=== PATIENT | male | born 1980 | race African-American/Black ===

== ENCOUNTER → 2017-09-18 | Outpatient (CLI) | payer BC | LOC: M WHC 14:15 | DX: N43.3 Hydrocele, unspecified (principal); I86.1 Scrotal varices; N50.89 Other specified disorders of the male genital organs | CPT/HCPCS: 80048 ==

== ENCOUNTER → 2017-09-18 | Outpatient (REF) | payer BC ==
[2017-09-18 16:30] LABS: ANION GAP 6 MEQ/L (8-16); BLOOD UREA NITROGEN 16 MG/DL (7-18); CARBON DIOXIDE LEVEL 28 MEQ/L (21-32); CHLORIDE LEVEL 104 MEQ/L (98-107); CREATININE FOR GFR 1.23 MG/DL (0.70-1.30); GLOMERULAR FILTRATION RATE > 60.0 (>60); GLUCOSE, FASTING 76 MG/DL (70-100); POTASSIUM SERUM 3.8 MEQ/L (3.5-5.1); SODIUM LEVEL 138 MEQ/L (136-145)
== END ==
LOC: M SFHCPLAZ 13:41
DX: I10 Essential (primary) hypertension (principal)

== ENCOUNTER 2018-12-21 22:52 | Emergency (ER) | payer BC, SELFPAY ==
[~2018-12-21] VITALS: Ht 182.9 cm; Wt 75.0 kg
[2018-12-21 22:52] VITALS: BP 118/67
[~2018-12-21 22:52] MED LIST: LISI10TA15 OR; LISI10TA15 PO
[2018-12-22] MEDS ORDERED: AZITHROMYCIN INJ 500 MG, VIAL MATE ADAPTER 1 EACH in D5W 250 ML IV ONE (00:30)
[2018-12-22] MEDS ORDERED: NS 500 ML IV ONE (00:30)
[2018-12-22] MEDS ORDERED: IPRATROPIUM 0.5MG/ALBUTEROL 2.5MG INH SOL UD 3ML (DUONEB)(J7620) NEB ONE (00:30)
[2018-12-22] MEDS ORDERED: cefTRIAXone SOD 1 GM in D5W MINI-BAG PLUS 50 ML IV ONE (00:30)
[2018-12-22] MEDS ORDERED: dexameTHASONE 20 MG/5 ML VIAL (J1100) IV ONE (00:30)
[2018-12-22] MEDS ORDERED: ZITHTAB PO (00:31)
[2018-12-22] MEDS ORDERED: PRED20TA PO (00:31)
[2018-12-22 01:23] LABS: BLOOD UREA NITROGEN 12 MG/DL (7-18); CARBON DIOXIDE LEVEL 28 MEQ/L (21-32); CHLORIDE LEVEL 101 MEQ/L (98-107); CREATININE FOR GFR 1.16 MG/DL (0.70-1.30); GLOMERULAR FILTRATION RATE > 60.0 (>60); GLUCOSE, FASTING 95 MG/DL (70-100); POTASSIUM SERUM 4.1 MEQ/L (3.5-5.1); SODIUM LEVEL 136 MEQ/L (136-145)
[2018-12-22 01:39] LABS: BASO # 0.1 10^3/uL (0.0-0.2); BASO % 0.3 % (0.0-1.0); EOS # 0.1 10^3/uL (0.0-0.5); EOS % 0.5 % (0.0-3.0); HEMATOCRIT 39.2 % (42.0-52.0); LYMPH # 2.3 10^3/uL (1.5-5.0); LYMPH % 13.9 % (24.0-44.0); MEAN CORPUSCULAR HEMOGLOBIN 32.6 pg (27.0-33.0); MEAN CORPUSCULAR HGB CONC 35.7 g/dl (32.0-36.5); MEAN CORPUSCULAR VOLUME 91.2 fl (80.0-96.0); MONO # 1.6 10^3/uL (0.0-0.8); MONO % 9.5 % (0.0-5.0); NEUTROPHILS # 12.7 10^3/uL (1.5-8.5); NEUTROPHILS % 75.2 % (36.0-66.0); PLATELET COUNT, AUTOMATED 349 10^3/uL (150-450); WHITE BLOOD COUNT 16.8 10^3/uL (4.0-10.0)
--- NOTE | 2018-12-22 09:39 | REP ---
CHEST PA AND LATERAL: 12/21/2018. Comparison: 02/16/2013. Clinical history: Cough. Findings: The lung leiva are well inflated. There is patchy infiltrate in the retrocardiac left lower lobe but also on the lateral view anteriorly in the lung base and some increased density and I suspect lingular and right middle lobe patchy infiltrate or atelectasis. No effusion. Remainder the lung leiva are clear. The heart, mediastinal and hilar contours are normal. Aorta and airway are intact. Impression: 1. Left lower lobe infiltrate along with anterior lung base infiltrates in the lingula and/or right middle lobe. No effusion or other acute finding. Electronically Signed by Bertin Muñoz MD 12/22/2018 07:31 P
== END 2018-12-22 03:42 | disposition home or self-care (01) ==
LOC: M ED 22:52
DX: J18.9 Pneumonia, unspecified organism (principal); J40 Bronchitis, not specified as acute or chronic; I10 Essential (primary) hypertension; Z79.899 Other long term (current) drug therapy; J30.1 Allergic rhinitis due to pollen; F17.210 Nicotine dependence, cigarettes, uncomplicated
CPT/HCPCS: 71046; 80048; 85025; 87040; 96365; 96367; 96375; 99284; J0456; J0696; J1100

== ENCOUNTER → 2019-02-25 | Outpatient (CLI) | payer BC, OTHER ==
[~2019-02-25] MED LIST changes: +PRED20TA PO; +ZITHTAB PO
[2019-02-25 17:56] LABS: BLOOD UREA NITROGEN 18 MG/DL (7-18); CALCIUM LEVEL 9.5 MG/DL (8.5-10.1); CARBON DIOXIDE LEVEL 31 MEQ/L (21-32); CHLORIDE LEVEL 101 MEQ/L (98-107); GLOMERULAR FILTRATION RATE > 60.0 (>60); GLUCOSE, FASTING 91 MG/DL (70-100); POTASSIUM SERUM 4.4 MEQ/L (3.5-5.1); SODIUM LEVEL 139 MEQ/L (136-145)
== END ==
LOC: M PLALAB 12:35
PROVIDERS: ATTEND Family Medicine
DX: I10 Essential (primary) hypertension (principal)

== ENCOUNTER → 2019-02-27 | Outpatient (REF) | payer BC, OTHER | LOC: M LAB REF 19:13 | PROVIDERS: ATTEND Otolaryngology | DX: D10.30 Benign neoplasm of unspecified part of mouth (principal) ==

== ENCOUNTER → 2019-11-07 | Outpatient (REF) | payer BC, OTHER, SELFPAY ==
[2019-12-25 07:35] LABS: BLOOD UREA NITROGEN 11 MG/DL (7-18); CALCIUM LEVEL 9.5 MG/DL (8.5-10.1); CARBON DIOXIDE LEVEL 32 MEQ/L (21-32); CHLORIDE LEVEL 103 MEQ/L (98-107); CREATININE FOR GFR 1.18 MG/DL (0.70-1.30); GLOMERULAR FILTRATION RATE > 60.0 (>60); GLUCOSE, FASTING 87 MG/DL (70-100); SODIUM LEVEL 139 MEQ/L (136-145)
== END ==
LOC: M SFHCPLAZ 11:41
PROVIDERS: ATTEND Family Medicine
DX: I10 Essential (primary) hypertension (principal)

== ENCOUNTER → 2020-12-01 | Outpatient (CLI) | payer OTHER ==
[2020-12-01 19:46] LABS: BLOOD UREA NITROGEN 13 MG/DL (7-18); CALCIUM LEVEL 9.1 MG/DL (8.5-10.1); CARBON DIOXIDE LEVEL 31 MEQ/L (21-32); CHLORIDE LEVEL 105 MEQ/L (98-107); GLOMERULAR FILTRATION RATE > 60.0 (>60); GLUCOSE, FASTING 92 MG/DL (70-100); POTASSIUM SERUM 4.2 MEQ/L (3.5-5.1); SODIUM LEVEL 138 MEQ/L (136-145)
== END ==
LOC: M WUC 15:31
PROVIDERS: ATTEND Family Medicine
DX: I10 Essential (primary) hypertension (principal)

== ENCOUNTER → 2021-08-26 | Outpatient (REF) | payer SELFPAY ==
[~2021-08-26] MED LIST changes: -LISI10TA15 OR; -LISI10TA15 PO; +LISI10TA24 OR; +LISI10TA24 PO
[2021-08-26 13:11] LABS: BLOOD UREA NITROGEN 12 MG/DL (7-18); CALCIUM LEVEL 9.8 MG/DL (8.5-10.1); CARBON DIOXIDE LEVEL 31 MEQ/L (21-32); CHLORIDE LEVEL 101 MEQ/L (98-107); CREATININE FOR GFR 1.09 MG/DL (0.70-1.30); GLOMERULAR FILTRATION RATE > 60.0 (>60); GLUCOSE, FASTING 114 MG/DL (70-100); POTASSIUM SERUM 4.1 MEQ/L (3.5-5.1); SODIUM LEVEL 138 MEQ/L (136-145)
== END ==
LOC: M WUC 12:10
PROVIDERS: ATTEND Family Medicine
DX: I10 Essential (primary) hypertension (principal)